=== PATIENT | female | born 1975 | race Caucasian/White ===

== ENCOUNTER 2018-11-14 05:59 | Emergency (ER) | payer OTHER ==
[~2018-11-14] VITALS: Ht 165.1 cm; Wt 100.8 kg
[2018-11-14 06:01] VITALS: BP 162/98
--- NOTE | 2018-11-14 06:23 | NUR ---
TESTED POSITIVE FOR SYPHILLIS AND GONERRHEA 3 DAYS AGO. WOULD LIKE TO BE TESTED AND TREATED FOR SAME. C/O YELLOW VAGINAL DISCHARGE, HEADACHES. PURSE SEINER CART IN ROOM, CALL LIGHT IN REACH
[2018-11-14] MEDS ORDERED: AZITHROMYCIN 500 MG TABLET PO ONE (06:30)
[2018-11-14] MEDS ORDERED: CEFTRIAXONE 250 MG IM ONE (06:30)
[2018-11-14] MEDS ORDERED: BICILLIN-LA 2,400,000 UNITS/4 ML IM ONE (06:30)
[2018-11-14] MEDS ORDERED: CEFTRIAXONE 250 MG ONE (06:38)
[2018-11-14] MEDS ORDERED: LIDOCAINE-MPF 1%, 2ML ONE ×2 (06:39)
[2018-11-14] MEDS ORDERED: AZITHROMYCIN 250 MG TABLET ONE (06:39)
[2018-11-14 06:55] LABS: CLUE CELLS NONE SEEN (NONE SEEN); WET PREP WBCS FEW (FEW)
--- NOTE | 2018-11-14 06:59 | NUR ---
received report from Padmini. pt upright on gurney awake & comfortable, responds approp to staff, NAD, no needs at this time, call light within reach.
--- NOTE | 2018-11-14 08:01 | NUR ---
Patient given discharge instructions and they have confirmed that they understand the instructions. Patient ambulatory with steady gait.
== END 2018-11-14 08:02 | disposition home or self-care (01) ==
LOC: ED 07:12
DX: A74.9 Chlamydial infection, unspecified (principal); A54.9 Gonococcal infection, unspecified; A53.9 Syphilis, unspecified
CPT/HCPCS: 36415; 86592; 87210; 87491; 87591; 87808; 96372; 99283; J0561; J0696; 99284

== ENCOUNTER 2018-11-17 14:18 | Emergency (ER) | payer OTHER ==
[~2018-11-17] VITALS: Ht 165.1 cm; Wt 101.3 kg
[2018-11-17 14:24] VITALS: BP 159/103
== END 2018-11-17 14:57 | disposition home or self-care (01) ==
LOC: ED 14:40
DX: L03.317 Cellulitis of buttock (principal); F17.200 Nicotine dependence, unspecified, uncomplicated
CPT/HCPCS: 99283